=== PATIENT | male | born 1985 | race Caucasian/White ===

== ENCOUNTER 2019-09-08 09:19 | Day surgery (SDC) | payer SELFPAY ==
[~2019-09-08 09:19] MED LIST: Lactated Ringers 1,000 ML IV SCH; Lidocaine 1%/Sod Bicarbonate in NS 8.4% 1 ML Syringe IDERM PRN; Sodium Chloride 0.9% 10 ML Syringe FLUSH PRN
--- NOTE | 2019-09-08 09:34 | PCM.HP.2 ---
H&P History of Present Illness - General Date of Service: 09/08/19 Admit Problem/Dx: symptomatic right inguinal hernia Source of Information: Patient History Limitations: Reports: No Limitations - Related Data Allergies/Adverse Reactions: Allergies Allergy/AdvReac Type Severity Reaction Status Date / Time No Known Allergies Allergy Verified 09/07/19 18:21 Home Medications: Home Meds . [No Known Home Meds] 09/07/19 [History] Past Medical History HEENT History: Reports: None Cardiovascular History: Reports: None Respiratory History: Reports: None Gastrointestinal History: Reports: Other (See Below) Other Gastrointestinal History: right inguinal hernia Genitourinary History: Reports: None [employer]ER History: Reports: None Neurological History: Reports: None Psychiatric History: Reports: None Endocrine/Metabolic History: Reports: None Hematologic History: Reports: None Immunologic History: Reports: None Oncologic (Cancer) History: Reports: None Dermatologic History: Reports: None - Past Surgical History Head Surgeries/Procedures: Reports: None HEENT Surgical History: Reports: None Cardiovascular Surgical History: Reports: None GI Surgical History: Reports: None Male Surgical History: Reports: Vasectomy Endocrine Surgical History: Reports: None Neurological Surgical History: Reports: None Musculoskeletal Surgical History: Reports: Other (See Below) Other Musculoskeletal Surgeries/Procedures:: right hand surgeyr in 2016 Oncologic Surgical History: Reports: None Dermatological Surgical History: Reports: None Social & Family History - Tobacco Use Smoking Status *Q: Former Smoker Years of Tobacco use: 10 Packs/Tins Daily: 0.2 Tobacco Use Comment: quit chewing 08/28/2019 - Caffeine Use Caffeine Use: Reports: Coffee, Soda - Recreational Drug Use Recreational Drug Use: No Drug Use in Last 12 Months: No H&P Review of Systems - Review of Systems: Review Of Systems: See Below General: Reports: No Symptoms HEENT: Reports: No Symptoms Pulmonary: Reports: No Symptoms Cardiovascular: Reports: No Symptoms Gastrointestinal: Reports: Abdominal Pain Genitourinary: Reports: No Symptoms Musculoskeletal: Reports: No Symptoms Skin: Reports: No Symptoms Psychiatric: Reports: No Symptoms Neurological: Reports: No Symptoms Hematologic/Lymphatic: Reports: No Symptoms Immunologic: Reports: No Symptoms Exam - Exam Exam: See Below - Exam General: Alert, Oriented HEENT: Conjunctiva Clear Neck: Supple Lungs: Clear to Auscultation Cardiovascular: Regular Rate GI/Abdominal Exam: Normal Bowel Sounds, Hernia (Male) Exam: Hernia Rectal (Males) Exam: Deferred Back Exam: Normal Inspection Extremities: Normal Inspection Skin: Warm, Dry Neuro Extensive - Mental Status: Alert Psychiatric: Alert *Q Meaningful Use (ADM) - VTE Risk Assess *Q Each Risk Factor Represents 1 Point: Minor Surgery Planned Total Score 1 Point Risk Factors: 1 Problem List Initiated/Reviewed/Updated: Yes Orders Last 24hrs: Active Orders 24 hr Category Date Time Status Peripheral IV Care [RC] . DIRECTED Care 09/08/19 00:01 Active Verify Patient Consent Obtain [RC] ASDIRECTED Care 09/08/19 00:01 Active BASIC METABOLIC PANEL,BMP [CHEM] Routine Lab 09/08/19 09:00 Ordered UA W/MICROSCOPIC [URIN] Routine Lab 09/08/19 09:26 Ordered Lactated Ringers [Ringers, Lactated] 1,000 ml Med 09/08/19 00:01 Active IV ASDIRECTED Lidocaine 1%/Sod Bicarbonate [Buffered Lidocaine 1% in Med 09/08/19 00:01 Active NS 8.4%] 0.25 ml IDERM ONETIME PRN Sodium Chloride 0.9% [Saline Flush] Med 09/08/19 00:01 Active 10 ml FLUSH ASDIRECTED PRN Medication Administration Instruction [OM.PC] Routine Oth 09/08/19 00:01 Ordered Peripheral IV Insertion Adult [OM.PC] Routine Oth 09/08/19 00:01 Ordered Medication Orders Lactated Ringer's (Ringers, Lactated) 1,000 mls @ 125 mls/hr IV ASDIRECTED DULCE Stop: 09/08/19 23:00 Lidocaine/Sodium Bicarbonate (Buffered Lidocaine 1% In Ns 8.4%) 0.25 ml IDERM ONETIME PRN PRN Reason: Prior to IV Start Stop: 09/08/19 18:00 Sodium Chloride (Saline Flush) 10 ml FLUSH ASDIRECTED PRN PRN Reason: Keep Vein Open Stop: 09/08/19 18:00 Assessment/Plan Comment:: Symptomatic right inguinal hernia. plan for open repair. - Mortality Measure Prognosis:: Good
--- NOTE | 2019-09-08 09:49 | PCM.PREANE ---
Preanesthetic Assessment - Procedure Proposed Procedure: right open inguinal hernia repair - Anesthesia/Transfusion/Family Hx Anesthesia History: Prior Anesthesia Without Reaction Family History of Anesthesia Reaction: No Transfusion History: No Prior Transfusion(s) - Review of Systems General: Other (virus going around and finished up last few days. Body aches 24 hour fever and chills and throat pain- symptom free for 2 days) Pulmonary: No Symptoms Cardiovascular: No Symptoms Gastrointestinal: No Symptoms Neurological: No Symptoms Other: Reports: None - Physical Assessment NPO Status Date: 09/07/19 NPO Status Time: 22:00 Vital Signs: 108/59 63 98% 16 98.1 Height: 6 ft 1 in Weight: 69 kg ASA Class: 1 Mental Status: Alert & Oriented x3 Airway Class: Mallampati = 1 Dentition: Reports: Normal Dentition Thyro-Mental Finger Breadths: 3 Mouth Opening Finger Breadths: 3 ROM/Head Extension: Full Lungs: Clear to Auscultation, Normal Respiratory Effort Cardiovascular: Regular Rate, Regular Rhythm - Allergies Allergies/Adverse Reactions: Allergies Allergy/AdvReac Type Severity Reaction Status Date / Time No Known Allergies Allergy Verified 09/07/19 18:21 - Blood Blood Available: No - Acknowledgements Anesthesia Type Planned: General Anesthesia Pt an Appropriate Candidate for the Planned Anesthesia: Yes Alternatives and Risks of Anesthesia Discussed w Pt/Guardian: Yes Pt/Guardian Understands and Agrees with Anesthesia Plan: Yes PreAnesthesia Questionnaire HEENT History: Reports: None Cardiovascular History: Reports: None Respiratory History: Reports: None Gastrointestinal History: Reports: Other (See Below) Other Gastrointestinal History: right inguinal hernia Genitourinary History: Reports: None [employer] VESSEL History: Reports: None Neurological History: Reports: None Psychiatric History: Reports: None Endocrine/Metabolic History: Reports: None Hematologic History: Reports: None Immunologic History: Reports: None Oncologic (Cancer) History: Reports: None Dermatologic History: Reports: None - Past Surgical History Head Surgeries/Procedures: Reports: None HEENT Surgical History: Reports: None Cardiovascular Surgical History: Reports: None GI Surgical History: Reports: None Male Surgical History: Reports: Vasectomy Endocrine Surgical History: Reports: None Neurological Surgical History: Reports: None Musculoskeletal Surgical History: Reports: Other (See Below) Other Musculoskeletal Surgeries/Procedures:: right hand surgeyr in 2016-- middle web finger surgery at age 4 bilateral Oncologic Surgical History: Reports: None Dermatological Surgical History: Reports: None - SUBSTANCE USE Smoking Status *Q: Former Smoker Tobacco Use Within Last Twelve Months: Other (See Below) (chew- last aug 28 2019) Second Hand Smoke Exposure: No Days Per Week of Alcohol Use: 1 Recreational Drug Use History: No - HOME MEDS Home Medications: Home Meds . [No Known Home Meds] 09/07/19 [History] - CURRENT (IN HOUSE) MEDS Current Meds: Current Medications Lactated Ringer's (Ringers, Lactated) 1,000 mls @ 125 mls/hr IV ASDIRECTED DULCE Stop: 09/08/19 23:00 Lidocaine/Sodium Bicarbonate (Buffered Lidocaine 1% In Ns 8.4%) 0.25 ml IDERM ONETIME PRN PRN Reason: Prior to IV Start Stop: 09/08/19 18:00 Sodium Chloride (Saline Flush) 10 ml FLUSH ASDIRECTED PRN PRN Reason: Keep Vein Open Stop: 09/08/19 18:00
[2019-09-08] MEDS ORDERED: Bupivacaine 0.5%/EPINEPHrine 1:200,000 50 ML MDV ONE (11:14)
[2019-09-08] MEDS ORDERED: Midazolam 1 MG/ML 2 ML SDV ONE (11:32)
[2019-09-08] MEDS ORDERED: Propofol 200 MG/20 ML SDV ONE (11:32)
[2019-09-08] MEDS ORDERED: fentaNYL 250 MCG/5 ML SDV ONE (11:33)
[2019-09-08] MEDS ORDERED: Rocuronium 50 MG/5 ML Vial ONE (11:36)
[2019-09-08] MEDS ORDERED: ceFAZolin 1 GM Vial ONE (11:38)
[2019-09-08] MEDS ORDERED: Ondansetron 4 MG/2 ML SDV ONE (11:40)
[2019-09-08] MEDS ORDERED: Lidocaine 1% 4 ML ONE (11:44)
[2019-09-08] MEDS ORDERED: fentaNYL 100 MCG/2 ML SDV IVPUSH PRN ×2 (11:55→13:27)
[2019-09-08] MEDS ORDERED: Ondansetron 4 MG/2 ML SDV IVPUSH PRN ×2 (11:55→13:27)
[2019-09-08] MEDS ORDERED: HYDROmorphone 0.5 MG/0.5 ML Syringe IVPUSH PRN (11:55)
[2019-09-08] MEDS ORDERED: Dexamethasone 4 MG/ML 5 ML MDV ONE (12:15)
[2019-09-08] MEDS ORDERED: Ketorolac 30 MG/ML SDV ONE ×2 (13:00→13:01)
[2019-09-08] MEDS ORDERED: Lactated Ringers 1,000 ML ONE (13:02)
[2019-09-08] MEDS ORDERED: diphenhydrAMINE 50 MG/ML SDV IVPUSH PRN (13:27)
--- NOTE | 2019-09-08 13:27 | PCM.POSTAN ---
POST ANESTHESIA ASSESSMENT - MENTAL STATUS Mental Status: Alert - VITAL SIGNS Vital Signs: Last Vital Signs 1317 87/41 100 77 97.8 16 Temp 36.7 C 09/08/19 09:25 Pulse 63 09/08/19 09:25 Resp 16 09/08/19 09:25 BP 108/59 L 09/08/19 09:25 Pulse Ox 98 09/08/19 09:25 - RESPIRATORY Respiratory Status: Respiratory Rate WNL, Airway Patent, O2 Saturation Stable - CARDIOVASCULAR CV Status: Pulse Rate WNL, Blood Pressure Stable - GASTROINTESTINAL GI Status: No Symptoms - PAIN Pain Score: 0 - POST OP HYDRATION Hydration Status: Adequate & Stable
--- NOTE | 2019-09-08 14:27 | PCM48HPAN ---
Post Anesthesia Note - EVALUATION WITHIN 48HRS OF ANESTHETIC Vital Signs in Normal Range: Yes Patient Participated in Evaluation: Yes Respiratory Function Stable: Yes Airway Patent: Yes Cardiovascular Function Stable: Yes Hydration Status Stable: Yes Pain Control Satisfactory: Yes Nausea and Vomiting Control Satisfactory: Yes Mental Status Recovered: Yes Vital Signs: Last Vital Signs Temp 36.6 C 09/08/19 14:05 Pulse 60 09/08/19 14:05 Resp 15 09/08/19 14:05 BP 103/71 09/08/19 14:05 Pulse Ox 100 09/08/19 14:05
--- NOTE | 2019-09-08 14:47 | PCM.PRNOTE ---
- Free Text/Narrative Note: Date: 09/08/2019 Operation: open right inguinal hernia repair Surgeon: Osman Montes MD Findings: small indirect inguinal hernia sac. This was ligated and divided after separation from the spermatic cord. Progrip mesh cut to size and shape was placed with good inferior medial overlap at the pubic tubercle. Detailed Report: The patient was taken to the operating room and placed supine on the table. Timeout was performed. LMA anesthesia was administered, and the abdomen was clipped, prepped and draped in usual sterile fashion. The projection line of the inguinal ligament was drawn out between the inferior aspect of the right ASIS and right pubic tubercle. A total of 20 cc 0.5% Marcaine with epinephrine was injected intradermally and in the subcutaneous fat plane, and the knife was used to make a 7 cm incision overlying the inguinal canal. Dissection was carried out through subcutaneous tissue and Sintia's fascia, and the external oblique aponeurosis was identified. Digital palpation revealed the location of the external inguinal ring. A small stab incision was made in the aponeurotic fibers overlying the spermatic cord, and Metzenbaum scissors were used to bluntly dissect the spermatic cord down from the overlying external oblique aponeurosis. An additional 10 cc of local anesthetic was injected just deep to the aponeurosis. Scissors were used to open the roof of the inguinal canal, and the spermatic cord and ilioinguinal nerve were identified. Blunt dissection was performed to free up the spermatic cord from its surroundings. A right angle clamp was used to get around the spermatic cord at the level of the pubic tubercle, and a Enfield drain was passed beneath the spermatic cord and used for retraction during dissection. Careful dissection proceeded out indirect hernia sac from the spermatic cord. The hernia sac was small, and contained no viscera. Once the sac was freed up to the level of the internal inguinal ring, the sac was ligated and cut distally. The distal portion of the sac was splayed open. Preservation of the vas deferens and spermatic vessels was ensured throughout dissection. At this time, a 9 x 15 cm rectangular piece of pro-bank guard mesh was introduced to the field. This was cut to size and shape for the patient. Prolene suture was used to secure the inferomedial aspect of the mesh to Dax's ligament, with good 2 cm medial and inferior overlap. The superior portion of the mesh was cut longitudinally to permit passage of the spermatic cord anteriorly to the mesh as it was laid down to reconstruct the floor of the inguinal canal. The internal inguinal ring was re-created by placing a permanent stitch between the 2 leaflets of the mesh, and enough space was left to allow just the tip of the small finger to pass through with the spermatic cord. The lateral portion of the mesh was secured to the shelving edge of the inguinal ligament with running Prolene suture. The remainder of the mesh was laid down flat without tacking permanent suture. The mesh lay flat beneath the leaflets of the external oblique aponeurosis. This was reapproximated with several interrupted Vicryl sutures. The fascia was closed over top of the aponeurotic closure in similar fashion. The skin was closed with running Vicryl suture and dressed with Dermabond. The patient tolerated the procedure well, and at the conclusion of the case the right testicle was palpated to be in proper position in the scrotum. Osman Montes MD General Surgery
== END 2019-09-08 15:24 | disposition home or self-care (01) ==
LOC: JD.SDS 09:19
PROVIDERS: ATTEND Surgery
DX: K40.90 Unilateral inguinal hernia, without obstruction or gangrene, not specified as recurrent (principal); Z87.891 Personal history of nicotine dependence
CPT/HCPCS: 36415; 49505; 80048; 81001; C1781; J0690; J1100; J1885; J2001; J2250; J2405; J2704; J3010; J3490; J7120